=== PATIENT | female | born 1940 | race Caucasian/White ===

== ENCOUNTER 2016-12-18 20:46 | Emergency (ER) | payer MEDICARE, OTHER ==
[2016-12-18 20:46] VITALS: BMI 24.5
[2016-12-18 21:41] VITALS: RESP 16; TEMP 97.9
[2016-12-18] MEDS ORDERED: Sodium Chloride 0.9% 1,000 ML IV SCH (22:15)
[2016-12-18 22:56] LABS: HEMOGLOBIN 12.9 g/dL (12.0-16.0); MEAN CELL VOLUME 98.2 fl (80.0-105.0); MEAN CORPUSCULAR HEMOGLOBIN 33.2 pg (25.0-35.0); MEAN CORPUSCULAR HGB CONC 33.8 g/dl (31.0-37.0); MEAN PLATELET VOLUME 9.8 fl (7.0-11.0); RBC 3.89 10^6/uL (3.5-6.1); RED CELL DISTRIBUTION WIDTH 13.4 % (11.5-14.5); WHITE BLOOD COUNT 9.7 10^3/ul (4.5-11.0)
--- NOTE | 2016-12-18 22:58 | ED PDOC ---
Arrival/HPI - General Chief Complaint: Anxiety Time Seen by Provider: 12/18/16 21:57 Historian: Patient, Family (daughter) - History of Present Illness Narrative History of Present Illness (Text): 12/18/16 22:55 76 year old female whose past medical history includes peripheral neuropathy, anxiety, and hypertension, presents to the emergency department complaining of nausea. Daughter states patient had an anxiety attack earlier today, consistent with her previous episodes of anxiety, and gave her Xanax, Seroquel, and her hypertension medication all at once. Daughter states patient then began complaining of nausea. Patient denies any fever, chills, chest pain, shortness of breath, vomiting, diarrhea, urinary symptoms, back pain, neck pain, headache , dizziness, or any other complaints. PMD: Dr. Alvarenga Psychiatrist: Dr. Emanuel Time/Duration: Other (Today) Symptom Onset: Gradual Symptom Course: Unchanged Activities at Onset: Light Context: Home Past Medical History - Provider Review Nursing Documentation Reviewed: Yes - Infectious Disease Hx of Infectious Diseases: None - Reproductive Menopause: Yes - Cardiac Hx Hypertension: Yes - Pulmonary Hx Asthma: Yes - Neurological Hx Alzheimer's Disease: Yes Hx Seizures: No - Hematological/Oncological Hx Cancer: No - Genitourinary/Gynecological Hx Sexually Transmitted Diseases: No - Psychiatric Hx Anxiety: Yes Hx Depression: Yes Hx Substance Use: No - Surgical History Other/Comment: hand surgery - Anesthesia Hx Anesthesia: Yes Hx Anesthesia Reactions: No - Suicidal Assessment Feels Threatened In Home Enviroment: No Family/Social History - Physician Review Nursing Documentation Reviewed: Yes Family/Social History: No Known Family HX Smoking Status: Never Smoked Hx Alcohol Use: No Hx Substance Use: No Hx Substance Use Treatment: No Allergies/Home Meds Allergies/Adverse Reactions: Allergies pollen extracts Allergy (Verified 04/14/16 17:39) Home Medications: Home Meds Medication Instructions Recorded Confirmed ALPRAZolam [Xanax] 0.5 mg PO Q8H PRN 05/24/16 12/18/16 Quetiapine Fumarate [Seroquel] 50 mg PO HS 05/24/16 12/18/16 Atorvastatin [Lipitor] 20 mg PO DAILY 12/18/16 12/18/16 Donepezil [Aricept] 5 mg PO DAILY 12/18/16 12/18/16 Lisinopril [Prinivil] 20 mg PO BID 12/18/16 12/18/16 Review of Systems - Physician Review All systems were reviewed & negative as marked: Yes - Review of Systems Constitutional: Normal. absent: Fevers Respiratory: Normal. absent: SOB Cardiovascular: Normal. absent: Chest Pain Gastrointestinal: Nausea. absent: Diarrhea, Vomiting Genitourinary Female: Normal. absent: Dysuria, Hematuria Musculoskeletal: absent: Back Pain, Neck Pain Neurological: Normal. absent: Headache, Dizziness Psychiatric: Anxiety Physical Exam Vital Signs Reviewed: Yes Vital Signs Temp Pulse Resp BP Pulse Ox 12/19/16 00:46 62 16 154/78 H 99 12/18/16 20:46 97.9 F 72 16 144/72 97 Temperature: Afebrile Blood Pressure: Normal Pulse: Regular Respiratory Rate: Normal Appearance: Positive for: Well-Appearing Pain Distress: None Mental Status: Positive for: Alert and Oriented X 3 - Systems Exam Head: Present: Atraumatic, Normocephalic Pupils: Present: PERRL Extroacular Muscles: Present: EOMI Conjunctiva: Present: Normal Mouth: Present: Moist Mucous Membranes Neck: Present: Normal Range of Motion Respiratory/Chest: Present: Clear to Auscultation, Good Air Exchange. No: Respiratory Distress, Accessory Muscle Use Cardiovascular: Present: Regular Rate and Rhythm, Normal S1, S2. No: Murmurs Abdomen: Present: Normal Bowel Sounds. No: Tenderness, Distention, Peritoneal Signs Back: Present: Normal Inspection Upper Extremity: Present: Normal Inspection. No: Cyanosis, Edema Lower Extremity: Present: Normal Inspection. No: Edema Neurological: Present: GCS=15, CN II-XII Intact, Speech Normal Skin: Present: Warm, Dry, Normal Color. No: Rashes Psychiatric: Present: Alert, Oriented x 3, Normal Insight, Normal Concentration Medical Decision Making ED Course and Treatment: 12/18/16 22:55 Impression: 76 year old female complaining of nausea tonight. Plan: -- EKG -- Labs -- Chest X-ray -- IV Fluids -- Zofran -- Reassess and disposition Prior Visits: Notes and results from previous visits were reviewed. Progress Notes: 12/18/16 22:57 EKG shows NSR at 65 BPM. Non-specific T-wave changes. Interpreted by me. 12/18/16 23:24 Chest X-ray read and interpreted by me, which shows no acute processes. 12/19/16 01:54 On reevaluation the patient feels better and is in no acute distress. I have discussed the results and plan with the patient, who expresses understanding. Patient given the opportunity to ask question, all questions were answered and there is agreement with the plan to discharge the patient home. Patient is stable for discharge. Patient was instructed to follow up with physician/clinic in 1-2 days or return if symptoms persist/worsen or new concerning symptoms arise. - Lab Interpretations Lab Results: 12/18/16 22:45 12/18/16 22:45 Lab Results 12/18/16 22:45: WBC 9.7, RBC 3.89, Hgb 12.9, Hct 38.2, MCV 98.2, MCH 33.2, MCHC 33.8, RDW 13.4, Plt Count 212, MPV 9.8 12/18/16 22:45: Sodium 142, Potassium 3.9, Chloride 105, Carbon Dioxide 28, Anion Gap 13, BUN 16, Creatinine 0.8, Est GFR ( Amer) > 60, Est GFR (Non- Af Amer) > 60, Random Glucose 102, Calcium 9.3, Total Bilirubin 0.4, AST 26, ALT 33, Alkaline Phosphatase 73, Total Protein 7.2, Albumin 3.8, Globulin 3.4, Albumin/Globulin Ratio 1.1, Lipase 185 I have reviewed the lab results: Yes - RAD Interpretation Radiology Orders: 12/18/16 22:05 CHEST PORTABLE [RAD] Stat Knapsack Sprayer: ED Physician - EKG Interpretation Interpreted by ED Physician: Yes Type: 12 lead EKG - Medication Orders Current Medication Orders: Sodium Chloride (Sodium Chloride 0.9%) 1,000 mls @ 100 mls/hr IV .Q10H MILENA Last Admin: 12/18/16 23:01 Dose: 100 mls/hr Discontinued Medications Ondansetron HCl (Zofran Inj) 4 mg IVP ONCE ONE Stop: 12/18/16 22:07 Last Admin: 12/18/16 23:01 Dose: 4 mg - Scribe Statement The provider has reviewed the documentation as recorded by the Devon Snell training under Natalie Milligan Provider Scribe Attestation: All medical record entries made by the Sebastiánibmeaghan were at my direction and personally dictated by me. I have reviewed the chart and agree that the record accurately reflects my personal performance of the history, physical exam, medical decision making, and the department course for this patient. I have also personally directed, reviewed, and agree with the discharge instructions and disposition. Disposition/Present on Arrival - Present on Arrival Any Indicators Present on Arrival: No History of DVT/PE: No History of Uncontrolled Diabetes: No Urinary Catheter: No History of Decub. Ulcer: No History Surgical Site Infection Following: None - Disposition Have Diagnosis and Disposition been Completed?: Yes Diagnosis: Anxiety, Nausea & vomiting Disposition: HOME/ ROUTINE Disposition Time: 01:54 Patient Plan: Discharge Patient Problems: Current Active Problems Problem Status Onset Anxiety Acute Nausea & vomiting Acute Condition: GOOD Additional Instructions: Drink small amounts of liquids at a time/advance diet slowly as tolerated/ follow up with your doctor this week Referrals: Kuldip Alvarenga MD [Primary Care Provider] - Follow up with primary Forms: [employer] (Eritrean)
[2016-12-18 23:04] LABS: ALB/GLOB RATIO 1.1 (1.1-1.8); ALBUMIN 3.8 g/dL (3.0-4.8); ALT/SGPT 33 U/L (7-56); AST/SGOT 26 U/L (15-39); BLOOD UREA NITROGEN 16 mg/dL (7-21); CALCIUM 9.3 mg/dL (8.4-10.5); GFR AFRICAN-AMERICAN > 60; GFR NON-AFRICAN AMERICAN > 60; LIPASE 185 U/L (23-300)
[2016-12-19 01:43] VITALS: BP 154/78; PULSE 62; O2SAT 99
--- NOTE | 2016-12-19 08:16 | RAD ---
HISTORY: nausea COMPARISON: 06/28/2016 FINDINGS: LUNGS: No active pulmonary disease. PLEURA: No significant pleural effusion identified, no pneumothorax apparent. CARDIOVASCULAR: Normal. OSSEOUS STRUCTURES: No significant abnormalities. VISUALIZED UPPER ABDOMEN: Normal. OTHER FINDINGS: None. IMPRESSION: No active disease.
--- NOTE | 2016-12-20 01:10 | CARD ---
APPROVED REPORT EKG Measurement Heart [id number] <Conclusion> Normal sinus rhythm Minimal voltage criteria for LVH, may be normal variant T wave abnormality, consider anterior ischemia Abnormal ECG
== END 2016-12-19 02:32 | disposition home or self-care (01) ==
LOC: ED 20:46
DX: F41.9 Anxiety disorder, unspecified (principal); R11.2 Nausea with vomiting, unspecified
CPT/HCPCS: 71010; 80053; 83690; 85027; 93005; 96374; 99283; J2405; J7040

== ENCOUNTER 2017-08-07 09:52 | Emergency (ER) | payer MEDICARE, OTHER ==
--- NOTE | 2017-08-07 11:03 | ED PDOC ---
Arrival/HPI - General Historian: Patient - General Chief Complaint: Lower Extremity Problem/Injury Time Seen by Provider: 08/07/17 10:36 - History of Present Illness Associated Symptoms (Text): 08/07/17 10:58 76 yo F presents c/o atraumatic L hip pain x 1 week. Reports no fever, chills, decrease in ROM, injury, other joint pain, abdominal pain, urinary symptoms, or back pain. (Iain HILL,Alexsandra Jones) Past Medical History - Infectious Disease Hx of Infectious Diseases: None - Cardiac Hx Hypertension: Yes - Pulmonary Hx Asthma: Yes - Neurological Hx Alzheimer's Disease: Yes Hx Seizures: No - Hematological/Oncological Hx Cancer: No - Genitourinary/Gynecological Hx Sexually Transmitted Diseases: No - Psychiatric Hx Anxiety: Yes Hx Depression: Yes Hx Substance Use: No - Surgical History Other/Comment: hand surgery - Anesthesia Hx Anesthesia: Yes Hx Anesthesia Reactions: No - Suicidal Assessment Feels Threatened In Home Enviroment: No Family/Social History Family/Social History: No Known Family HX Smoking Status: Never Smoked Hx Alcohol Use: No Hx Substance Use: No Hx Substance Use Treatment: No Allergies/Home Meds Allergies/Adverse Reactions: Allergies pollen extracts Allergy (Verified 08/07/17 10:07) SHORTNESS OF BREATH Home Medications: Home Meds Medication Instructions Recorded Confirmed ALPRAZolam [Xanax] 0.5 mg PO Q8H PRN 05/24/16 08/07/17 Quetiapine Fumarate [Seroquel] 50 mg PO HS 05/24/16 08/07/17 Atorvastatin [Lipitor] 20 mg PO DAILY 12/18/16 08/07/17 Donepezil [Aricept] 5 mg PO DAILY 12/18/16 08/07/17 Lisinopril [Prinivil] 20 mg PO BID 12/18/16 08/07/17 Review of Systems - Review of Systems Constitutional: absent: Fatigue, Weight Change, Fevers Musculoskeletal: Arthralgias. absent: Back Pain, Neck Pain, Joint Swelling, Myalgias Skin: absent: Rash, Pruritis, Skin Lesions Physical Exam - Physical Exam Narrative Physical Exam (Text): 08/07/17 11:03 GENERAL APPEARANCE: Patient is awake, alert, oriented x 3, in mild painful distress. Patient arrived to the ER ambulatory. SKIN: Warm, dry; (-) cyanosis. EYES: (-) conjunctival pallor. ENMT: Mucous membranes moist. NECK: (-) tenderness, (-) stiffness, (-) lymphadenopathy. CHEST AND RESPIRATORY: (-) rales, (-) rhonchi, (-) wheezes; breath sounds equal bilaterally. HEART AND CARDIOVASCULAR: (-) irregularity; (-) murmur, (-) gallop. ABDOMEN AND GI: Soft; (-) tenderness; (-) palpable mass. BACK: (-) Paravertebral tenderness, (-) spasm, (-) direct bony tenderness, (-) deformity. Straight leg raising (-) bilaterally. EXTREMITIES: (+) R hip tenderness, (+) pain elicited with ROM of the R hip, (-) deformity. Rest of the extremities are nontender with FROM. Distal pulses good bilaterally. NEURO AND PSYCH: Mental status as above. Intact sensation bilaterally; normal strength in extension of the knees, plantar and dorsiflexion of the toes. (Iain HILL,Alexsandra Jones) Vital Signs Temp Pulse Resp BP Pulse Ox 08/07/17 13:07 98.7 F 60 17 145/73 97 08/07/17 10:08 97.8 F 71 19 156/78 H 94 L Medical Decision Making ED Course and Treatment: 08/07/17 11:04 76-year-old female complaining of atraumatic left hip pain. Plan: - XR R hip - Tylenol PO 650 mg XR right hip: no fracture, no dislocation, as read by PA Patient advised that official radiology read of XR is still pending and will call the patient if there is any discrepancy within 24 hours. X-ray results discussed with the patient and with family members. On reevaluation, patient is laying in bed comfortably in no acute distress, has no additional complaints at this time. Patient able to stand up with some assistance and ambulate. Patient provided with a cane. Based on history, exam and diagnostic results plan will be for outpatient follow up. Advised to follow up with primary care physician in 1-2 days without fail. Advised to take medication as prescribed. Return to the emergency room at any time for any new or worsening symptoms. Patient states she fully agrees with and understands discharge instructions. States that she agrees with the plan and disposition. Verbalized and repeated discharge instructions and plan. I have given the patient opportunity to ask any additional questions. (Iain HILL,Alexsandra Jones) - RAD Interpretation Radiology Orders: 08/07/17 10:36 HIP MIN 2V W/ PELVIS RT [RAD] Stat - Medication Orders Current Medication Orders: Discontinued Medications Acetaminophen (Tylenol 325mg Tab) 650 mg PO STAT STA Stop: 08/07/17 10:59 Last Admin: 08/07/17 11:05 Dose: 650 mg MAR Pain/Vitals Document 08/07/17 11:05 MR (Rec: 08/07/17 11:06 MR [id number]) Pain Reassessment Is This A Pain ReAssessment? No Sleep Is patient sleeping during reassessment? No Presence of Pain Presence of Pain Yes Pain Scale Used Pain Scale Used Numeric Location Left, Right or Bilateral Right Pain Location Body Site Hip Description Constant Intensity 8 Scale Used Numeric Aggravating Factors Changing Position Walking Alleviating Factors Medication - PA / ONCOLOGY NAVIGATOR / Resident Statement MD/DO has reviewed & agrees with the documentation as recorded. Disposition/Present on Arrival - Present on Arrival Any Indicators Present on Arrival: No History of DVT/PE: No History of Uncontrolled Diabetes: No Urinary Catheter: No History of Decub. Ulcer: No History Surgical Site Infection Following: None - Disposition Have Diagnosis and Disposition been Completed?: Yes Disposition Time: 12:15 Patient Plan: Discharge - Disposition Diagnosis: Hip pain, right Disposition: HOME/ ROUTINE Condition: STABLE Discharge Instructions (ExitCare): Hip Pain Print Language: [place] ISLANDER Additional Instructions: Thank you for letting us take care of you today. You were treated for right hip pain. The emergency medical care you received today was directed at your acute symptoms. Take tylenol for pain. Return to the Emergency Department if your symptoms worsen, do not improve, or if you have any other problems. Please contact your doctor in 2 days for re-evaluation and follow up. Bring any paperwork you were given at discharge with you along with any medications you are taking to your follow up visit. Our treatment cannot replace ongoing medical care by a primary care provider (PCP) outside of the emergency department. Thank you for allowing the [facility] team to be part of your care today. If you had an X-Ray : A Radiologist will review the ED reading if any change in treatment is needed we will contact you. Forms: [employer] (Latvian)
--- NOTE | 2017-08-07 12:33 | RAD ---
PROCEDURE: Right Hip and pelvis Radiographs. HISTORY: pain COMPARISON: None. FINDINGS: BONES: Normal. No fracture. JOINTS: Normal. SOFT TISSUES: Normal. OTHER FINDINGS: None. IMPRESSION: Negative study
[2017-08-07 12:43] VITALS: BMI 24.1
[2017-08-07 13:08] VITALS: BP 145/73; PULSE 60; RESP 17; TEMP 98.7; O2SAT 97
== END 2017-08-07 13:19 | disposition home or self-care (01) ==
LOC: ED 09:52
DX: M25.551 Pain in right hip (principal); I10 Essential (primary) hypertension; G30.9 Alzheimer's disease, unspecified